=== PATIENT | male | born 1970 | race Caucasian/White ===

== ENCOUNTER 2020-11-23 11:13 | Emergency (ER) | payer BC, OTHER ==
[~2020-11-23] VITALS: Ht 193 cm; Wt 104.3 kg
[2020-11-23 12:17] LABS: CALCIUM 9.2 mg/dL (8.5-10.1); HEMATOCRIT 42.7 % (42.0-52.0); HEMOGLOBIN 15.2 gm/dL (14.0-18.0); MCH 30.4 pg (26.0-34.0); MCHC 35.6 g/dL (28.0-37.0); MCV 85.4 fL (80.0-100.0); RDW 12.2 % (10.5-14.5); WBC 7.9 thou/uL (4.0-11.0)
[2020-11-23 12:28] LABS: ALBUMIN 4.1 g/dL (3.4-5.0); MAGNESIUM 1.9 mg/dL (1.8-2.4); TOTAL BILIRUBIN 0.5 mg/dL (0.2-1.0)
[2020-11-23 13:25] VITALS: BP 148/87
--- NOTE | 2020-11-25 07:30 | EKG ---
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
--- NOTE | 2020-11-25 07:30 | EKG ---
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
== END 2020-11-23 13:26 | disposition home or self-care (01) ==
LOC: ER 11:13 → EDBD 11:13 → ER 13:26
PROVIDERS: Emergency Medicine
DX: E87.6 Hypokalemia (principal); R00.2 Palpitations; I10 Essential (primary) hypertension